=== PATIENT | female | born 1990 | race Caucasian/White ===

== ENCOUNTER 2018-10-16 14:16 | Emergency (ER) | payer OTHER, MEDICAID ==
[~2018-10-16] VITALS: Ht 165.1 cm; Wt 53.5 kg
[~2018-10-16 14:16] MED LIST: ALPRAZOLAM; AMOXICILLIN 50500 M1 PO; AMOXICILLIN500 M1 PO; AUGMENTIN 875875 MG PO; AZITHROMYCIN 2250 MG PO; CIPROFLOXACIN250 M2 PO; DARVOCET-N 1001 EACH PO; DOXYCYCLINE 10100 M1 PO; DOXYCYCLINE 10100 MG PO; FLAGYL500 MG PO; FLONASE 0.05%50 MCG NS; HYDROCODON-ACE1 EACH PO; KEFLEX500 MG PO; LEXAPRO 10 MG T10 MG PO; MACROBID 100 M100 M1 PO; NORCO 5-325 TA1 EACH PO; PRISTIQ50 MG; ULTRAM 50MG TAB50 MG PO; VICODIN 5-5001 EACH PO; XANAX 0.5 MG0.5 M1 PO; ZOFRAN4 MG PO; ZOLOFT100 MG PO; [UNRECOGNIZED DRUG - OTHER]
[2018-10-16 14:17] VITALS: BP 111/73
[2018-10-16] MEDS ORDERED: LEXAPRO20 MG PO (14:28)
[2018-10-16] MEDS ORDERED: PERCOCET 5-3251 EACH PO (14:46)
[2018-10-16] MEDS ORDERED: FLEXERIL PO (14:46)
== END 2018-10-16 14:50 | disposition home or self-care (01) ==
LOC: M.ERS 14:16
DX: M25.512 Pain in left shoulder (principal); F32.9 Major depressive disorder, single episode, unspecified; Z90.49 Acquired absence of other specified parts of digestive tract; Z88.2 Allergy status to sulfonamides

== ENCOUNTER 2018-11-02 19:23 | Emergency (ER) | payer OTHER, MEDICAID ==
[~2018-11-02] VITALS: Ht 165.1 cm; Wt 54.4 kg
[~2018-11-02 19:23] MED LIST changes: +FLEXERIL PO; +LEXAPRO20 MG PO; +PERCOCET 5-3251 EACH PO
[2018-11-02 19:54] VITALS: BP 131/86
[2018-11-02] MEDS ORDERED: SERTRALINE HCL50 MG PO (19:57)
== END 2018-11-02 20:29 | disposition left against medical advice (07) ==
LOC: M.ERS 19:23
DX: Z53.21 Procedure and treatment not carried out due to patient leaving prior to being seen by health care provider (principal)

== ENCOUNTER 2018-11-11 12:06 | Emergency (ER) | payer OTHER ==
[~2018-11-11] VITALS: Ht 165.1 cm; Wt 55.3 kg
[~2018-11-11 12:06] MED LIST changes: +SERTRALINE HCL50 MG PO
[2018-11-11] MEDS ORDERED: GABAPENTIN 100100 MG PO (12:20)
[2018-11-11] MEDS ORDERED: MOBIC7.5 MG PO (12:20)
[2018-11-11] MEDS ORDERED: PERCOCET PO (12:41)
[2018-11-11 13:01] VITALS: BP 128/90
== END 2018-11-11 13:02 | disposition home or self-care (01) ==
LOC: M.ERS 12:06
DX: M54.12 Radiculopathy, cervical region (principal); F32.9 Major depressive disorder, single episode, unspecified; Z88.2 Allergy status to sulfonamides; Z90.49 Acquired absence of other specified parts of digestive tract

== ENCOUNTER 2019-02-07 05:05 | Emergency (ER) | payer OTHER, MEDICAID ==
[~2019-02-07] VITALS: Ht 165.1 cm; Wt 59.0 kg
[~2019-02-07 05:05] MED LIST changes: +GABAPENTIN 100100 MG PO; +MOBIC7.5 MG PO; +PERCOCET PO
[2019-02-07] MEDS ORDERED: ZOLOFT100 MG PO (05:20)
[2019-02-07] MEDS ORDERED: DESYREL150 MG PO (05:21)
[2019-02-07 05:30] LABS: HEMATOCRIT 43.4 % (37.0-47.0); HEMOGLOBIN 15.3 gm/dL (12.0-15.0); MCH 32.6 pg (26.0-34.0); MCHC 35.3 g/dL (28.0-37.0); MCV 92.2 fL (80.0-100.0); MPV 7.7 fl. (7.2-11.1); NUCLEATED RBCS 0 /100WBC; PLATELET COUNT* 224 thou/uL (150-400); RBC 4.71 mil/uL (4.20-5.00); RDW-CV 13.4 % (10.5-14.5); WBC 17.4 thou/uL (4.0-11.0)
[2019-02-07 05:40] LABS: CALCIUM 8.5 mg/dL (8.5-10.1); POTASSIUM 3.6 mmol/L (3.5-5.1)
[2019-02-07 05:44] LABS: ALBUMIN 4.2 g/dL (3.4-5.0); TOTAL BILIRUBIN 0.6 mg/dL (<0.1-1.0); TOTAL PROTEIN 7.7 g/dL (6.4-8.2)
[2019-02-07 05:55] LABS: URINE BLOOD 2+ (Negative); URINE CLARITY CLOUDY; URINE COLOR YELLOW; URINE GLUCOSE-RANDOM NEGATIVE (Negative); URINE KETONES TRACE (Negative); URINE LEUKOCYTES-REFLEX NEGATIVE (Negative); URINE NITRITE-REFLEX NEGATIVE (Negative); URINE PROTEIN 1+ (Negative); URINE SPECIFIC GRAVITY >= 1.030 (1.005-1.030); URINE UROBILINOGEN 0.2 E.U./dl (0.2-1.0)
[2019-02-07 05:58] LABS: URINE BILIRUBIN 2+ (Negative)
[2019-02-07 06:01] LABS: ICTOTEST (BILI CONFIRMATORY) Positive (Negative)
[2019-02-07 06:10] LABS: SQUAMOUS 0-3 Few /LPF (0-3); URINE WBC-REFLEX None Seen /HPF (0-5)
[2019-02-07 06:11] LABS: AMORPHOUS URATES Many /LPF (None Seen); CASTS None Seen /LPF (None Seen); MUCUS 4-6 Moderate strn/LPF (None Seen)
[2019-02-07 07:06] LABS: ABSOLUTE LYMPHOCYTES 0.3 thou/uL (0.8-5.3); ABSOLUTE MONOCYTES 0.5 thou/uL (0.0-1.2); ABSOLUTE NEUTROPHILS 16.5 thou/uL (1.6-8.1); PLATELET ESTIMATE ADEQUATE
[2019-02-07] MEDS ORDERED: ZOFRAN ODT4 MG SUBLING (07:42)
[2019-02-07 07:53] VITALS: BP 99/54
--- NOTE | 2019-02-08 14:36 | EKG ---
[place] [address] ELECTROCARDIOGRAM REPORT Name: MAE GARCIA Room: [facility]#: [id number] Admission: 02/07/19 Attend Phys: Discharge: 02/07/19 Date of : 86 Report #: [id number] THIS REPORT FOR: //name// [facility] ED Test Date: 2019-02-07 Test Time: 05:35:53 Pat Name: MAE GARCIA Department: Room: Gender: F [employer] Agent: : [id number] Requested By: Donavan Rider Order Number: [id number] MD: Diogenes Ibrahim Measurements Intervals [place] Rate: 78 P: 70 MT: 105 QRS: 76 QRSD: 86 T: 50 QT: 391 QTc: 446 Interpretive Statements Sinus rhythm Short MT interval Baseline wander in lead(s) V2 Compared to ECG 07/19/2012 15:17:04 Short MT interval now present Sinus tachycardia no longer present ST (T wave) deviation no longer present Electronically Signed On 02-08-2019 14:35:55 [employer] by Diogenes Ibrahim [email or web address] <ELECTRONICALLY SIGNED> By: Diogenes Ibrahim MD, FACC 02/08/19 1435 0535 0535 Diogenes Ibrahim MD, FACC /EPI
== END 2019-02-07 07:55 | disposition home or self-care (01) ==
LOC: M.ERS 05:05
PROVIDERS: Emergency Medicine Emergency Medical Services
DX: R10.31 Right lower quadrant pain (principal); R11.2 Nausea with vomiting, unspecified; R19.7 Diarrhea, unspecified; Z88.2 Allergy status to sulfonamides

== ENCOUNTER 2019-03-17 14:13 | Emergency (ER) | payer OTHER, MEDICAID ==
[~2019-03-17 14:13] MED LIST changes: +DESYREL150 MG PO; +ZOFRAN ODT4 MG SUBLING
== END 2019-03-17 15:05 | disposition left against medical advice (07) ==
LOC: M.ERS 14:13
DX: Z53.21 Procedure and treatment not carried out due to patient leaving prior to being seen by health care provider (principal)

== ENCOUNTER 2019-07-24 14:14 | Emergency (ER) | payer OTHER ==
[~2019-07-24] VITALS: Ht 165.1 cm; Wt 56.7 kg
[2019-07-24] MEDS ORDERED: MEDROLDOSEPACK PO (15:52)
[2019-07-24] MEDS ORDERED: FLEXERIL PO (15:52)
[2019-07-24] MEDS ORDERED: PERCOCET 5-3251 EACH PO (15:52)
[2019-07-24 16:02] VITALS: BP 123/77
== END 2019-07-24 16:03 | disposition home or self-care (01) ==
LOC: M.ERS 14:14
DX: S16.1XXA Strain of muscle, fascia and tendon at neck level, initial encounter (principal); M54.6 Pain in thoracic spine; Z88.2 Allergy status to sulfonamides; Z88.6 Allergy status to analgesic agent; Z88.5 Allergy status to narcotic agent; Z79.899 Other long term (current) drug therapy; Z90.49 Acquired absence of other specified parts of digestive tract; V49.88XA Car occupant (driver) (passenger) injured in other specified transport accidents, initial encounter; Y93.89 Activity, other specified; Y92.413 State road as the place of occurrence of the external cause; Y99.9 Unspecified external cause status

== ENCOUNTER 2019-09-08 17:17 | Emergency (ER) | payer OTHER, MEDICAID ==
[~2019-09-08] VITALS: Ht 165.1 cm; Wt 56.7 kg
[~2019-09-08 17:17] MED LIST changes: +MEDROLDOSEPACK PO
[2019-09-08] MEDS ORDERED: TRAZODONE HCL100 MG PO (17:30)
[2019-09-08] MEDS ORDERED: AMOXICILLIN 50500 MG PO (18:03)
[2019-09-08] MEDS ORDERED: TYLENOL WITH CO1 TA1 PO (18:03)
[2019-09-08 18:10] VITALS: BP 115/70
== END 2019-09-08 18:13 | disposition home or self-care (01) ==
LOC: M.ERS 17:17
DX: K03.81 Cracked tooth (principal); K08.89 Other specified disorders of teeth and supporting structures; Z88.6 Allergy status to analgesic agent; Z88.2 Allergy status to sulfonamides; Z88.5 Allergy status to narcotic agent; Z90.49 Acquired absence of other specified parts of digestive tract

== ENCOUNTER 2019-10-21 14:40 | Emergency (ER) | payer OTHER, MEDICAID ==
[~2019-10-21] VITALS: Ht 165.1 cm; Wt 56.7 kg
[~2019-10-21 14:40] MED LIST changes: +AMOXICILLIN 50500 MG PO; +TRAZODONE HCL100 MG PO; +TYLENOL WITH CO1 TA1 PO
[2019-10-21 16:05] LABS: ABSOLUTE BASOPHILS 0.1 thou/uL (0.0-0.2); ABSOLUTE EOSINOPHILS 0.2 thou/uL (0.0-0.7); ABSOLUTE LYMPHOCYTES 2.2 thou/uL (0.8-5.3); ABSOLUTE MONOCYTES 0.6 thou/uL (0.0-1.2); ABSOLUTE NEUTROPHILS 4.7 thou/uL (1.6-8.1); BASOPHILS 0.9 %; EOSINOPHILS 2.6 %; HEMATOCRIT 39.4 % (37.0-47.0); HEMOGLOBIN 13.9 gm/dL (12.0-15.0); LYMPHOCYTES 28.6 %; MCH 32.1 pg (26.0-34.0); MCHC 35.2 g/dL (28.0-37.0); MCV 91.1 fL (80.0-100.0); MONOCYTES 7.5 %; MPV 7.1 fl. (7.2-11.1); NUCLEATED RBCS 0 /100WBC; PLATELET COUNT* 228 thou/uL (150-400); POLYS 60.4 %; RBC 4.33 mil/uL (4.20-5.00); RDW-CV 13.6 % (10.5-14.5); WBC 7.7 thou/uL (4.0-11.0)
[2019-10-21 16:13] LABS: CALCIUM 9.1 mg/dL (8.5-10.1); CREATININE 0.8 mg/dL (0.6-1.3); POTASSIUM 3.7 mmol/L (3.5-5.1)
[2019-10-21 16:27] VITALS: BP 115/72
== END 2019-10-21 16:28 | disposition left against medical advice (07) ==
LOC: M.ERS 14:40
PROVIDERS: Nurse Practitioner Family
DX: G43.909 Migraine, unspecified, not intractable, without status migrainosus (principal); Z88.2 Allergy status to sulfonamides; Z88.5 Allergy status to narcotic agent; Z90.49 Acquired absence of other specified parts of digestive tract

== ENCOUNTER 2020-10-23 21:22 | Emergency (ER) | payer OTHER, MEDICAID ==
[~2020-10-23] VITALS: Ht 162.6 cm; Wt 54.4 kg
[2020-10-23] MEDS ORDERED: METHOTREXATE 22.5 M1 (21:27)
[2020-10-23] MEDS ORDERED: FOLIC ACID1 MG (21:27)
[2020-10-23] MEDS ORDERED: [UNRECOGNIZED DRUG - REMARK] (21:27)
[2020-10-23] MEDS ORDERED: PERCOCET 5-3251 EACH PO (23:35)
[2020-10-23 23:50] VITALS: BP 109/71
== END 2020-10-23 23:51 | disposition home or self-care (01) ==
LOC: M.ERS 21:22
DX: M06.841 Other specified rheumatoid arthritis, right hand (principal); M06.842 Other specified rheumatoid arthritis, left hand; G43.909 Migraine, unspecified, not intractable, without status migrainosus; F17.210 Nicotine dependence, cigarettes, uncomplicated; Z79.899 Other long term (current) drug therapy; Z90.49 Acquired absence of other specified parts of digestive tract; Z88.2 Allergy status to sulfonamides; Z88.5 Allergy status to narcotic agent